=== PATIENT | female | born 1965 | race Hispanic/Latino ===

== ENCOUNTER 2018-12-07 09:09 | Inpatient (IN) | payer BC ==
[~2018-12-07] VITALS: Ht 157.5 cm; Wt 74.4 kg
--- OUTSIDE RECORDS SUMMARY | 2018-12-07 09:14 | XMS REPORT ---
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 Allergies, Adverse Reactions, Alerts Allergy Name Allergy Type Status Severity Reaction(s) Onset Date Inactive Date Treating Clinician Comments No Known Allergies DA Active U 2010-11-03 00:00:00 Medications This patient has no known medications. Results Test Description Test Time Test Comments Text Results Atomic Results Result Comments - CT ABD PELVIS W/CONT 2018-11-30 22:15:00 Name: VERONA STRONG [facility] FSED : 1965 Age/S: 53 / F [address] [facility] [address] Unit #: [id number] Loc: [address] Phys: Cristo Avalos MD [place], [place] [address] Acct: [id number] Dis Date: Status: REG ER PHONE #: Exam Date: 11/30/2018 2143 FAX #: Reason: LLQ pain. diverticultis?? also has h/o kidney s EXAMS: CPT CODE: [id number] CT ABD PELVIS W/CONT 13425 REASON FOR EXAM: LLQ pain. diverticultis?? also has h/o kidney stones EXAM ORDER DATE: 11/30/2018 8:09 PM Ordering M.DVaishali: Cristo Avalos MD PROCEDURE: - CT ABD PELVIS W/CONT contrast-enhanced axial CT images were acquired through the abdomen/pelvis at 5 mm intervals. Sagittal and coronal reformatted images were generated. Automated exposure control was utilized for this reduction. Phases of contrast: venous and delayed CO MPARISON: CT scan of the abdomen and pelvis November 03, 2010 FINDINGS: Visualized thorax: Calcified granuloma in the left lung base. Otherwise normal. Hepatobiliary system: Decreased hepatic parenchymal attenuation is compatible with steatosis. Pancreas: Normal Spleen: Normal Adrenal glands: Normal Genitourinary system: There is a 4 mm stone in the proximal left ureter (series 2 image 59). There is dilation of the left renal pelvis, similar to the previous CT scan. On the delayed images no contrast is observed in the ureter distal to this stone. There is mild stranding of the perinephric fat on the left side and slightly decreased enhancement of the left kidney compared to the right. There are also calcified stones in the inferior pole calyces with the larger stone measuring up to 7 mm and the smaller stone measuring 4 mm. No stones in the right kidney or right ureter. Urinary bladder and reproductive organs are within normal limits. Gastrointestinal tract and appendix: Normal Abdominal vascular structures: Normal Peritoneum and retroperitoneum: No free fluid or free air. No omental PAGE 1 Signed Report (CONTINUED) Name: VERONA STRONG [facility] FSED : 1965 Age/S: 53 / F [address] [facility] [address] Unit #: [id number] Loc: [address] Phys: Cristo Avalos MD [place], [place] [address] Acct: [id number] Dis Date: Status: REG ER PHONE #: Exam Date: 11/30/2018 2141 FAX #: Reason: LLQ pain. diverticultis?? also has h/o kidney s EXAMS: CPT CODE: [id number] CT ABD PELVIS W/CONT 86261 <Continued> or mesenteric masses. There is mild stranding of the perinephric fat on the left side.. Musculoskeletal structures and abdominal wall: Fat-containing umbilical hernia. Hemangioma in the L3 vertebral body. IMPRESSION: Stone in the proximal left ureter with findings suggesting ureteral obstruction and inflammatory changes of the left kidney. Additional calyceal stones are also present in the left kidney. at 2215 Reported and signed by: Edmund Smith MD CC: Cristo Avalos MD; Una Payton Technologist:Andrea Barrera CTDI: DLP: Trnscb Date/Time: 11/30/2018 (2215) [id number] Orig Print D/T: S: 11/30/2018 (5587) PAGE 2 Signed Report URINALYSIS COMPLETE 2018-11-30 20:33:00 UA COLOR (test code=COLU) YELLOW YELLOW UA APPEARANCE (test code=APPU) HAZY CLEAR UA GLUCOSE DIPSTICK (test code=DGLUU) 300-500 (3+) mg/dL NEGATIVE UA BILIRUBIN DIPSTICK (test code=BILU) NEGATIVE NEGATIVE UA KETONE DIPSTICK (test code=KETU) 1+ mg/dL NEGATIVE UA SPECIFIC GRAVITY (test code=SGU) 1.025 1.001-1.035 UA BLOOD DIPSTICK (test code=SIERRA) 2+ (Moderate) NEGATIVE UA PH DIPSTICK (test code=NURIS) 6.0 5.0-8.0 UA PROTEIN DIPSTICK (test code=PROU) 1+ mg/dL Neg-15 UA UROBILINIOGEN DIPSTICK (test code=URO) 0.2 mg/dL 0.0-0.2 UA NITRITE DIPSTICK (test code=VICTOR MANUEL) NEGATIVE NEGATIVE UA LEUKOCYTE ESTERASE DIPSTICK (test code=LEUU) TRACE uL NEGATIVE UA MICROSCOPIC NEEDED? (test code=UAMICRO) YES UA WBC (test code=WBCU) >100 per HPF 0-5 UA RBC (test code=RBCU) 5-10 per HPF 0-5 UA EPITHELIAL CELLS (test code=EPIU) Few (2-5/hpf) per HPF Few UA BACTERIA (test code=BACU) FEW per HPF NONE UA MUCUS (test code=MUCU) FEW per LPF NONE-FEW Urine Source? Clean CatchURINALYSIS [id number] 20:27:00* Test Item Value Reference Range Comments UA COLOR (test code=COLU) YELLOW UA APPEARANCE (test code=APPU) CLEAR UA GLUCOSE DIPSTICK (test code=DGLUU) 300-500 (3+) mg/dL NEGATIVE UA BILIRUBIN DIPSTICK (test code=BILU) NEGATIVE NEGATIVE UA KETONE DIPSTICK (test code=KETU) 1+ mg/dL NEGATIVE UA SPECIFIC GRAVITY (test code=SGU) 1.025 1.001-1.035 UA BLOOD DIPSTICK (test code=SIERRA) 2+ (Moderate) NEGATIVE UA PH DIPSTICK (test code=NURIS) 6.0 5.0-8.0 UA PROTEIN DIPSTICK (test code=PROU) 1+ mg/dL Neg-15 UA UROBILINIOGEN DIPSTICK (test code=URO) 0.2 mg/dL 0.0-0.2 UA NITRITE DIPSTICK (test code=VICTOR MANUEL) NEGATIVE NEGATIVE UA LEUKOCYTE ESTERASE DIPSTICK (test code=LEUU) TRACE uL NEGATIVE UA MICROSCOPIC NEEDED? (test code=UAMICRO) UA WBC (test code=WBCU) per HPF 0-5 UA RBC (test code=RBCU) per HPF 0-5 UA EPITHELIAL CELLS (test code=EPIU) per HPF Few UA BACTERIA (test code=BACU) per HPF NONE Urine Source? Clean CatchBASIC METABOLIC [id number] 20:07:00* Test Item Value Reference Range Comments SODIUM (test code=NA) 139 mmol/L 128-145 POTASSIUM (test code=K) 4.1 mmol/L 3.5-5.1 CHLORIDE (test code=CL) 104.0 mmol/L 98-107 CARBON DIOXIDE (test code=CO2) 28.5 mmol/L 22-29 ANION GAP (test code=GAP) 11 mmol/L 10-20 GLUCOSE (test code=GLU) 136 mg/dL 70-110 BLOOD UREA NITROGEN (test code=BUN) 13 mg/dL 7-22 GLOMERULAR FILTRATION RATE (test code=GFR) > 60 mL/min >=60 Estimated GFR by using Modified MDRD formula.Chronic kidney disease is defined as either kidney damageor GFR <60 mL/min/1.73 m2 for >3 months. CREATININE (test code=CREAT) 0.78 mg/dL 0.55-1.3 BUN/CREATININE RATIO (test code=BUN/CREA) 16.7 10-20 CALCIUM (test code=CA) 10.0 mg/dL 8.0-10.5 HEPATIC FUNCTION [id number] 20:07:00* Test Item Value Reference Range Comments TOTAL PROTEIN (test code=PROT) gram/dL 6.4-8.2 ALBUMIN (test code=ALB) g/dL 3.4-5.0 GLOBULIN (test code=GLOB) G/DL 1-10 ALBUMIN/GLOBULIN RATIO (test code=A/G) 0.75-1.50 BILIRUBIN TOTAL (test code=BILT) mg/dL 0.0-1.0 BILIRUBIN DIRECT (test code=BILD) mg/dL 0.0-0.20 SGOT/AST (test code=AST) IUnit/L 15-37 SGPT/ALT (test code=ALT) IUnit/L 12-78 ALKALINE PHOSPHATASE TOTAL (test code=ALKP) IUnit/L 45-117 [id number] 20:07:00* Test Item Value Reference Range Comments LIPASE (test code=LIP) U/L 73.0-393.0 HCG SERUM [id number] 20:07:00* Test Item Value Reference Range Comments HCG SERUM QUAL (test code=HCGQL) NEGATIVE NEGATIVE This HCGQL test is NOT applicable for MALE patients.Check with nurse about probable order error.If Tumor Marker Test needed, nurse should order test "HCGTU"(Test #550.45365) BASIC METABOLIC [id number] 20:07:00* Test Item Value Reference Range Comments SODIUM (test code=NA) 139 mmol/L 128-145 POTASSIUM (test code=K) 4.1 mmol/L 3.5-5.1 CHLORIDE (test code=CL) 104.0 mmol/L 98-107 CARBON DIOXIDE (test code=CO2) 28.5 mmol/L 22-29 ANION GAP (test code=GAP) 11 mmol/L 10-20 GLUCOSE (test code=GLU) 136 mg/dL 70-110 BLOOD UREA NITROGEN (test code=BUN) 13 mg/dL 7-22 GLOMERULAR FILTRATION RATE (test code=GFR) > 60 mL/min >=60 Estimated GFR by using Modified MDRD formula.Chronic kidney disease is defined as either kidney damageor GFR <60 mL/min/1.73 m2 for >3 months. CREATININE (test code=CREAT) 0.78 mg/dL 0.55-1.3 BUN/CREATININE RATIO (test code=BUN/CREA) 16.7 10-20 CALCIUM (test code=CA) 10.0 mg/dL 8.0-10.5 HEPATIC FUNCTION [id number] 20:07:00* Test Item Value Reference Range Comments TOTAL PROTEIN (test code=PROT) 8.1 gram/dL 6.1-7.8 ALBUMIN (test code=ALB) 3.8 g/dL 3.3-4.4 GLOBULIN (test code=GLOB) 4.3 G/DL 1-10 ALBUMIN/GLOBULIN RATIO (test code=A/G) 0.9 0.75-1.50 BILIRUBIN TOTAL (test code=BILT) 0.60 mg/dL 0.2-1.2 BILIRUBIN DIRECT (test code=BILD) 0.10 mg/dL 0.0-0.30 SGOT/AST (test code=AST) 24 U/L 10-39 SGPT/ALT (test code=ALT) 40 U/L 10-69 ALKALINE PHOSPHATASE TOTAL (test code=ALKP) 122 U/L 50-139 [id number] 20:07:00* Test Item Value Reference Range Comments LIPASE (test code=LIP) 247 Unit/L 144-286 HCG SERUM [id number] 20:07:00* Test Item Value Reference Range Comments HCG SERUM QUAL (test code=HCGQL) NEGATIVE NEGATIVE This HCGQL test is NOT applicable for MALE patients.Check with nurse about probable order error.If Tumor Marker Test needed, nurse should order test "HCGTU"(Test #550.07461) BASIC METABOLIC [id number] 20:01:00* Test Item Value Reference Range Comments SODIUM (test code=NA) 139 mmol/L 128-145 POTASSIUM (test code=K) 4.1 mmol/L 3.5-5.1 CHLORIDE (test code=CL) 104.0 mmol/L 98-107 CARBON DIOXIDE (test code=CO2) 28.5 mmol/L 22-29 ANION GAP (test code=GAP) 11 mmol/L 10-20 GLUCOSE (test code=GLU) 136 mg/dL 70-110 BLOOD UREA NITROGEN (test code=BUN) 13 mg/dL 7-22 GLOMERULAR FILTRATION RATE (test code=GFR) > 60 mL/min >=60 Estimated GFR by using Modified MDRD formula.Chronic kidney disease is defined as either kidney damageor GFR <60 mL/min/1.73 m2 for >3 months. CREATININE (test code=CREAT) 0.78 mg/dL 0.55-1.3 BUN/CREATININE RATIO (test code=BUN/CREA) 16.7 10-20 CALCIUM (test code=CA) 10.0 mg/dL 8.0-10.5 HEPATIC FUNCTION [id number] 20:01:00* Test Item Value Reference Range Comments TOTAL PROTEIN (test code=PROT) gram/dL 6.4-8.2 ALBUMIN (test code=ALB) g/dL 3.4-5.0 GLOBULIN (test code=GLOB) G/DL 1-10 ALBUMIN/GLOBULIN RATIO (test code=A/G) 0.75-1.50 BILIRUBIN TOTAL (test code=BILT) mg/dL 0.0-1.0 BILIRUBIN DIRECT (test code=BILD) mg/dL 0.0-0.20 SGOT/AST (test code=AST) IUnit/L 15-37 SGPT/ALT (test code=ALT) IUnit/L 12-78 ALKALINE PHOSPHATASE TOTAL (test code=ALKP) IUnit/L 45-117 [id number] 20:01:00* Test Item Value Reference Range Comments LIPASE (test code=LIP) U/L 73.0-393.0 HCG SERUM [id number] 20:01:00* Test Item Value Reference Range Comments HCG SERUM QUAL (test code=HCGQL) NEGATIVE CBC W/O [id number] 19:53:00* Test Item Value Reference Range Comments WHITE BLOOD CELL (test code=WBC) 11.8 K/mm3 4.5-12.5 RED BLOOD CELL (test code=RBC) 5.05 mill/mm3 3.7-5.2 HEMOGLOBIN (test code=HGB) 15.5 gram/dL 11.5-15.5 HEMATOCRIT (test code=HCT) 46.8 % 36.0-46.0 MEAN CELL VOLUME (test code=MCV) 92.7 fL 80-98 MEAN CELL HGB (test code=MCH) 30.7 picogram 27.0-33.0 MEAN CELL HGB CONCETRATION (test code=MCHC) 33.1 gram/dL 33.0-36.0 RED CELL DISTRIBUTION WIDTH (test code=RDW) 12.1 % 11.6-16.2 RED CELL DISTRIBUTION WIDTH SD (test code=RDW-SD) 41.7 fL 37.0-51.0 PLATELET COUNT (test code=PLT) 183 K/mm3 150-450 MEAN PLATELET VOLUME (test code=MPV) 10.9 fL 6.7-11.0
--- OUTSIDE RECORDS SUMMARY | 2018-12-07 09:14 | XMS REPORT | Clinical Summary ---
Author Author [facility] Address Unknown Phone Unavailable Care Team Providers Care Key Account Coordinator Name Role Phone Zi Matt MD PCP Allergies No Known Allergies Medications End Date Status Medication Sig Dispensed Refills Start Date Active pravastatin (PRAVACHOL) Take 20 mg by 0 20 MG tablet mouth nightly. Active dapagliflozin-metformin Take 1 tablet 0 (XIGDUO XR) 10-1,000 mg by mouth tablet, IR & ER, biphasic daily. 24hr Active ciprofloxacin (CIPRO) 500 Take 500 mg 0 MG tablet by mouth 2 (two) times a day. Active Problems Problem Noted Date Calculus of kidney 12/02/2018 Encounters Care Team Description Date Type Specialty Wei Chaves MD LEFT ESWL [facility]/02[facility]2018 [facility] General Surgery Event Wei Chaves MD 12/02/2018 Hospital General Surgery Encounter after 12/06/2017 Social History Date Tobacco Use Types Packs/Day Years Used Never Smoker Smokeless Tobacco: Never Used Alcohol Use Drinks/Week oz/Week Comments Never Alcohol Habits Answer Date Recorded How often do you have a drink containing alcohol? Never 12/02/2018 How many drinks containing alcohol do you have on Not asked a typical day when you are drinking? How often do you have six or more drinks on one Not asked occasion? Sex Assigned at Date Recorded Not on file Industry Job Start Date Occupation Not on file Not on file Not on file Travel End Travel History Travel Start No recent travel history available. Last Filed Vital Signs Time Taken Vital Sign Reading 12/02/2018 5:28 PM CDT Blood Pressure 120/76 12/02/2018 5:28 PM CDT Pulse 52 12/02/2018 5:06 PM CDT Temperature 36.3 C (97.3 F) 12/02/2018 5:28 PM CDT Respiratory Rate 16 12/02/2018 5:28 PM CDT Oxygen Saturation 99% - Inhaled Oxygen - Concentration 12/02/2018 2:44 PM CDT Weight 74.4 kg (164 lb) 12/02/2018 2:44 PM CDT Height 157.5 cm (5' 2") 12/02/2018 2:44 PM CDT Body Mass Index 30 Plan of Treatment Health Maintenance Due Date Last Done Comments BREAST CANCER SCREENING 2014 COLONOSCOPY SCREENING 2014 SHINGLES VACCINES (#1) 2014 INFLUENZA VACCINE 12/17/2018 Procedures Comments Procedure Name Priority Date/Time Associated Diagnosis POC GLUCOSE Routine 12/02/2018 4:56 PM CDT EXTRACORPOREAL SHOCKWAVE 12/02/2018 N20.0 KIDNEY STONE LITHOTRIPSY (ESWL) 4:20 PM CDT Special Needs NEXTMED OR AN ELECTIVE Routine 12/02/2018 SUPR[address]LOTTIC AIRWAY 3:44 PM CDT Procedure Note - Denver Duvall - 12/02/2018 3:44 PM CDT Airway Date/Time: 12/02/2018 3:39 PM Performed by: Denver Duvall Authorized by: Clemente Monroe MD Location: OR Urgency: Elective Difficult Airway: No Anesthesio logist: Clemente Monroe MD Resident/C RNA/AA: Denver Duvall Performed by: resident/C RNA/AA Preoxygena tyler with 100% O2: Yes Mask Ventilatio n: Not attempted Final Airway Type: Supraglott ic airway Final LMA: Unique LMA Size: 4 Number of Attempts at Approach: 1 ECG PRE/POST OP Routine 12/02/2018 2:51 PM CDT XR ABDOMEN 1 VW Routine 12/02/2018 2:32 PM CDT HCG QUALITATIVE, URINE STAT 12/02/2018 SCREEN 2:19 PM CDT ESTIMATED GFR Routine 12/02/2018 2:13 PM CDT BASIC METABOLIC PANEL Routine 12/02/2018 2:13 PM CDT after 12/06/2017 Results * POC glucose (12/02/2018 4:56 PM CDT) POC glucose 87 65 - 99 mg/dL [place] Comment: EPISCOPALIAN ALY Meter ID: [id number] [facility] Journeyman Electrician: Frederic Barraza Specimen Performing Organization Address City/State/Zipcode [place] [address] [place] [address] PATHOLOGY AND GENOMIC MEDICINE [place] [address] [place] [address] [facility] * ECG Pre/Post Op (12/02/2018 2:51 PM CDT) Ventricular 61 [facility] rate Atrial rate 61 [facility] OR interval 148 [facility] QRSD interval 86 [facility] QT interval 380 [facility] QTC interval 382 [facility] P axis 1 40 [facility] QRS axis 1 1 [facility] T wave axis 21 [facility] EKG impression Normal sinus rhythm with sinus [facility] M[facility] arrhythmia-Normal ECG-No previous ECGs available- Specimen Narrative Performed At Performing Organization Address [facility] Phone Number [facility] [address] [place] [address] * XR Abdomen 1 Vw (12/02/2018 2:32 PM CDT) Specimen Narrative Performed At EXAMINATION:XR ABDOMEN 1 VW [facility] CLINICAL HISTORY:pre op COMPARISON:None. IMPRESSION: 1.8 x 0.4 cm stone projects over the lower pole left kidney. Smaller 1 mm stone in the left kidney Large amount retained stool in colon Bony structures within normal limits [id number] Procedure Note Hm Interface, Radiology Results Incoming - 12/02/2018 3:18 PM CDT EXAMINATION: XR ABDOMEN 1 VW CLINICAL HISTORY: pre op COMPARISON: None. IMPRESSION: 1.8 x 0.4 cm stone projects over the lower pole left kidney. Smaller 1 mm stone in the left kidney Large amount retained stool in colon Bony structures within normal limits [id number] Performing Organization Address City/[facility]/Zipcode Phone Number [facility] [address] [place] [address] * hCG qualitative, urine screen (12/02/2018 2:19 PM CDT) [facility] hCG Negative Negative [place] qualitative, Comment: [facility] urine The manufacturers stated [facility] sensitivity of HcG test for serum is >/=10 mIU/ml and urine is >/=20mIU/ml. Specimen Urine Performing Organization Address [facility] Cent[facility]ode Phone Number [facility] [place] [id number] [place] [address] [place] [address] PATHOLOGY AND [facility] MEDICINE [address] * Estimated GFR (12/02/2018 2:13 PM CDT) [facility] Estimated GFR >=90 mL/min/1.73 m2 [place] Comment: [facility] rpretation G1 >=90 Normal or high G2 60-89Mildly decreased [id number] Mildly to moderately decreased C3i62-63 Moderately to severely decreased G4 15-29Severely decreased G5 <15Kidney failure The eGFR was calculated using the Chronic Kidney Disease Epidemiology Collaboration (CKD-EPI) equation. Interpretation is based on recommendations of the National Kidney Foundation-Kidney Disease Outcomes Quality Initiative (NKF-KDOQI) published in 2014. Specimen Plasma specimen Performing Organization Address [facility] Centercode Phone Number [address] [place] [address] PATHOLOGY AND [facility] MEDICINE [address] * Basic metabolic panel (12/02/2018 2:13 PM CDT) [facility] Sodium 140 135 - 148 mEq/L [facility] Potassium 3.8 3.5 - 5.0 mEq/L [facility] Chloride 106 98 - 112 mEq/L [facility] CO2 25 24 - 31 mEq/L [facility] Anion gap 9@ANIO 7 - 15 mEq/L [facility] BUN 16 6 - 20 mg/dL [facility] Creatinine 0.70 0.50 - 0.90 mg/dL [facility] Glucose 101 (H) 65 - 99 mg/dL [facility] Calcium 10.3 (H) 8.3 - 10.2 mg/dL [facility] Specimen Plasma specimen Performing Organization Address City/State/Zipcode [place] [address] [place] [address] PATHOLOGY AND GENOMIC MEDICINE [facility] [place] [place] [address] [facility] after 12/06/2017 Insurance Type Payer Benefit Subscriber ID Effective Phone Address Plan / Dates Group PPO BCBS ANTHEM xxxxxxxxxxxx [id number] BLUE CROSS resent Advance Directives Patient has advance care planning documents on file. For more information, wilner mendoza contact: Griffin Yarbrough [address] [place] [address]
[2018-12-07] MEDS ORDERED: SODIUM CHLORIDE 0.9% 1000ML 1,000 ML IV STA (10:11)
--- NOTE | 2018-12-07 10:51 | Diagnostic Imaging Report ---
EXAMINATION: CHEST SINGLE (PORTABLE) INDICATION: Chest pain COMPARISON: None FINDINGS: TUBES and LINES: None. LUNGS: Mild biapical pleural parenchymal thickening/scarring. No focal consolidation or pulmonary edema. PLEURA: No pleural effusion or pneumothorax. HEART AND MEDIASTINUM: The cardiomediastinal silhouette is normal in size and contour. BONES AND SOFT TISSUES: No acute fracture or dislocation. UPPER ABDOMEN: No free air under the diaphragm. IMPRESSION: No focal pneumonia or pulmonary edema. Signed by: Ellie Mccann MD on 12/07/2018 10:47 AM
[2018-12-07 11:17] LABS: BASOPHILS # (AUTO) 0.1 (0.0-0.1); BASOPHILS % 0.4 % (0.0-1.0); EOSINOPHILS # (AUTO) 0.3 (0.0-0.4); EOSINOPHILS % 2.3 % (0.0-6.0); HEMATOCRIT 42.6 % (34.2-44.1); HEMOGLOBIN 14.6 g/dL (12.0-16.0); LYMPHOCYTES # (AUTO) 1.8 (1.0-3.2); LYMPHOCYTES % 15.1 % (18.0-39.1); MEAN CORPUSCULAR HEMOGLOBIN 30.4 pg (28-32); MEAN CORPUSCULAR HGB CONC 34.3 g/dL (31-35); MEAN CORPUSCULAR VOLUME 88.6 fL (81-99); MONOCYTES # (AUTO) 1.3 (0.2-0.8); MONOCYTES % 11.1 % (4.4-11.3); NEUTROPHILS # (AUTO) 8.5 (2.1-6.9); NEUTROPHILS % 70.5 % (38.7-80.0); PLATELET COUNT 267 x10e3/uL (140-360); RED BLOOD COUNT 4.81 x10e6/uL (3.6-5.1); RED CELL DISTRIBUTION WIDTH 11.7 % (11.7-14.4)
[2018-12-07 11:29] LABS: BILIRUBIN,URINE NEGATIVE (NEGATIVE); CLARITY,URINE CLEAR (CLEAR); COLOR,URINE YELLOW (YELLOW); INR 1.02; KETONES,URINE 1+ (NEGATIVE); LEUKOCYTE ESTERASE ,URINE NEGATIVE (NEGATIVE); NITRITE,URINE NEGATIVE (NEGATIVE); PROTEIN,URINE DIPSTICK NEGATIVE (NEGATIVE); PROTHROMBIN TIME 13.9 seconds (11.9-14.5); URINE UROBILINOGEN 0.2 mg/dL (0.2 - 1)
[2018-12-07 11:30] LABS: PARTIAL THROMBOPLASTIN TIME 31.4 seconds (23.8-35.5)
[2018-12-07 11:33] LABS: ALANINE AMINOTRANSFERASE 26 IU/L (0-55); ALBUMIN 3.4 g/dL (3.5-5.0); ALBUMIN/GLOBULIN RATIO 0.8 (0.8-2.0); ALKALINE PHOSPHATASE 123 IU/L (40-150); AMYLASE 51 U/L (25-125); BLOOD UREA NITROGEN 15 mg/dL (7-26); BUN/CREATININE RATIO 13 (6-25); CALCIUM 10.5 mg/dL (8.4-10.2); CARBON DIOXIDE 25 mmol/L (22-29); CHLORIDE 102 mmol/L (98-107); CREATINE KINASE 26 IU/L (29-168); CREATININE, SERUM 1.15 mg/dL (0.57-1.11); EST GLOMERULAR FILTRATION RATE 49 ML/MIN (60-); GLUCOSE 110 mg/dL (74-118); LIPASE 41 U/L (8-78); SODIUM 136 mmol/L (136-145)
[2018-12-07 11:53] LABS: EPITHELIAL CELLS,URINE RARE /LPF; RBC,URINE 0-5 /HPF (0-5); WBC,URINE (MAN) 0-5 /HPF (0-5)
[2018-12-07 11:54] LABS: BACTERIA,URINE FEW /HPF
--- NOTE | 2018-12-07 14:26 | Diagnostic Imaging Report ---
EXAM: CT Abdomen and Pelvis WITH intravenous contrast INDICATION: Abdominal pain status post lithotripsy. COMPARISON: None. TECHNIQUE: Abdomen and pelvis were scanned utilizing a multidetector helical scanner from the lung base to the pubic symphysis after administration of IV contrast. Coronal and sagittal reformations were obtained. Routine protocol was performed. Scan was performed when during portal venous phase. IV CONTRAST: 100mL of Isovue 370 ORAL CONTRAST: Water. COMPLICATIONS: None RADIATION DOSE: Total DLP: 734.8 mGy*cm Dose modulation, iterative reconstruction, and/or weight based adjustment of the mA/kV was utilized to reduce the radiation dose to as low as reasonably achievable. FINDINGS: LOWER THORAX: Mild bibasilar dependent subsegmental atelectasis. No focal consolidation. HEPATOBILIARY: No focal hepatic lesions. No biliary ductal dilatation. The gallbladder appears unremarkable. SPLEEN: No splenomegaly. PANCREAS: No focal masses or ductal dilatation. ADRENALS: No adrenal nodules. KIDNEYS/URETERS: There is moderate left hydroureteronephrosis with a 6 mm proximal left ureteral obstructing calculus and a second 4 mm left ureteral calculus slightly further distally. There is irregular enhancement of the left renal parenchyma and a small amount of posterior perinephric fluid and adjacent perinephric fat stranding, all suggestive of pyelonephritis. A 10 mm rounded calculus and adjacent 8 mm elongated calculus are at the left kidney lower pole. No right renal calculi or right hydronephrosis. PELVIC ORGANS/BLADDER: Unremarkable. PERITONEUM / RETROPERITONEUM: No free air or fluid. LYMPH NODES: No lymphadenopathy. VESSELS: Mild scattered atherosclerotic calcifications of the abdominal aorta. GI TRACT: No distention or wall thickening. Normal appendix. BONES AND SOFT TISSUES: No acute osseous injury. There is a hemangioma of the L3 vertebral body. No suspicious lytic or blastic lesions. IMPRESSION: Proximal left ureteral calculi with resulting moderate left hydroureteronephrosis and findings of left pyelonephritis. Additional left lower pole renal calculi as above. No right hydronephrosis or right renal calculi. Signed by: Ellie Mccann MD on 12/07/2018 2:23 PM
[2018-12-07] MEDS ORDERED: IOPAMIDOL 370 MG/ML 200 ML INFUS..BTL INJ ONE (14:39)
[2018-12-07] MEDS ORDERED: SODIUM CHLORIDE 0.9% 50ML 50 ML ONE (14:39)
[2018-12-07] MEDS: CEFEPIME 1GM/NS 0.9% 50 ML 50 ML IV SCH (15:51)
[2018-12-07] MEDS ORDERED: ONDANSETRON HCL INJ 2MG/ML 2ML 2 MG/ML VIAL IV PRN (18:15)
--- OUTSIDE RECORDS SUMMARY | 2018-12-07 18:25 | XMS REPORT | Clinical Summary ---
Author Author [employer] Organization [employer] Address Unknown Phone Unavailable Care Team Providers Care Activities Assistant Name Role Phone Zi Matt MD PCP [...] MD LEFT ESWL 12/02/2018 [facility]2018 Anesthesia General Surgery Event Wei [...] (ESWL) 4:20 PM CDT Special Needs NEXTMED SD AN ELECTIVE Routine 12/02/2018 SUPRAGLOTTIC AIRWAY 3:44 [...] POC glucose 87 65 - 99 mg/dL GLADE Comment: LUTHERAN ALY Meter ID: [id number] [facility] Transit Planning Director: Frederic Barraza Specimen Performing Organization Address City/State/Zipcode [place] [address] [place] [address] PATHOLOGY [place] [address] [place] [address] [facility] * ECG Pre/Post Op (12/02/2018 2:51 PM CDT) Ventricular 61 [facility] MUSE rate Atrial rate 61 [facility] MUSE SD interval 148 [facility] QRSD interval 86 [facility] M[facility] QT interval 380 [facility] QTC interval 382 [facility] M[facility] P axis 1 40 [facility] M[facility] QRS axis 1 1 [facility] MUSE T wave axis 21 [facility] MUSE EKG impression Normal sinus rhythm with sinus [facility] MUSE arrhythmia-Normal ECG-No previous ECGs available- Specimen Narrative Performed At Performing Organization Address [facility] Phone Number [facility] MUSE [address] [place] [address] * XR Abdomen 1 Vw (12/02/2018 2:32 PM CDT) Specimen Narrative Performed At EXAMINATION:XR ABDOMEN 1 VW [facility] CLINICAL HISTORY:pre op COMPARISON:None. IMPRESSION: 1.8 x 0.4 cm stone projects over the lower pole left kidney. Smaller 1 mm stone in the left kidney Large amount retained stool in colon Bony structures within normal limits [id number] Procedure Note Hm Interface, Radiology Results Incoming - 12/02/2018 3:18 PM CDT EXAMINATION: XR ABDOMEN 1 VW CLINICAL HISTORY: pre op COMPARISON: None. IMPRESSION: 1.8 x 0.4 cm stone projects over the lower pole left kidney. Smaller 1 mm stone in the left kidney Large amount retained stool in colon Bony structures within normal limits [id number] Performing Organization Address City/[facility]/Zipcode Phone Number [facility] [address] [place] [address] * hCG qualitative, urine screen (12/02/2018 2:19 PM CDT) [facility] hCG Negative Negative GLADE qualitative, Comment: [facility] urine The manufacturers stated [facility] sensitivity of HcG test for serum is >/=10 mIU/ml and urine is >/=20mIU/ml. Specimen Urine Performing Organization Address [facility] Centercode Phone Number [facility] [place] [id number] [place] [address] [place] [address] PATHOLOGY AND [facility] MEDICINE [address] * Estimated GFR (12/02/2018 2:13 PM CDT) [facility] Estimated GFR >=90 mL/min/1.73 m2 GLADE Comment: [facility] rpretation G1 >=90 Normal or high G2 60-89Mildly decreased [id number] Mildly to moderately decreased D7o10-41 Moderately to severely decreased G4 15-29Severely decreased G5 <15Kidney failure The eGFR was calculated using the Chronic Kidney Disease Epidemiology Collaboration (CKD-EPI) equation. Interpretation is based on recommendations of the National Kidney Foundation-Kidney Disease Outcomes Quality Initiative (NKF-KDOQI) published in 2014. Specimen Plasma specimen Performing Organization Address [facility] Centercode Phone Number [address] [place] [address] PATHOLOGY AND [facility] MEDICINE [address] * Basic metabolic panel (12/02/2018 2:13 PM CDT) [facility] Sodium 140 135 - 148 mEq/L [facility] Potassium 3.8 3.5 - 5.0 mEq/L [facility] Chloride 106 98 - 112 mEq/L [facility] CO2 25 24 - 31 mEq/L [facility] Anion gap 9@ANIO 7 - 15 mEq/L [facility] BUN 16 6 - 20 mg/dL [facility] Creatinine 0.70 0.50 - 0.90 mg/dL [facility] Glucose 101 (H) 65 - 99 mg/dL [facility] Calcium 10.3 (H) 8.3 - 10.2 mg/dL [facility] Specimen Plasma specimen Performing Organization Address City/State/Zipcode [place] Number [place] [address] [place] [address] PATHOLOGY AND GENOMIC MEDICINE GRIFFIN YARBROUGH [address] [place] [address] [facility] after 12/06/2017 Insurance Type Payer Benefit Subscriber ID Effective Phone Address Plan / Dates Group PPO BCBS ANTHEM xxxxxxxxxxxx 2015-P BLUE CROSS resent Advance Directives Patient has advance care planning documents on file. For more information, wilner mendoza contact: Griffin Yarbrough [address] [place] [address]
[2018-12-07] MEDS: SODIUM CHLORIDE 0.9% 1000ML 1,000 ML IV SCH (18:45)
--- NOTE | 2018-12-07 18:56 | NUR ---
pt report given to MORAIMA Mojica
[2018-12-07] MEDS ORDERED: PRAVASTATIN SOD20 MG PO (20:37)
[2018-12-07] MEDS ORDERED: XIGDUO PO (20:37)
[2018-12-07] MEDS ORDERED: DEXTROSE 50% SYRINGE 50 ML IV PRN (21:15)
[2018-12-07] MEDS ORDERED: ACETAMINOPHEN 1000 MG/100 ML IV PRN (21:15)
--- NOTE | 2018-12-07 21:29 | NUR ---
received patient to unit via stretcher aaox4, c/o headache- treated with prn medication. resp even and unlabored. amb, steady gait. skin intact. l ac 18g, NS @ 125. updated patient on plan of care, and npo status.
[2018-12-07 21:39] VITALS: BP 124/73
[2018-12-08] VITALS (7 sets, daily range): BP systolic 107–134; BP diastolic 55–78
[2018-12-08] MEDS: SODIUM CHLORIDE 0.9% 1000ML 1,000 ML IV SCH ×4 (03:16→20:59)
[2018-12-08] MEDS: CEFEPIME 1GM/NS 0.9% 50 ML 50 ML IV SCH ×2 (03:48→14:57)
[2018-12-08 06:42] LABS: BASOPHILS % 0.3 % (0.0-1.0); EOSINOPHILS # (AUTO) 0.4 (0.0-0.4); EOSINOPHILS % 3.4 % (0.0-6.0); HEMATOCRIT 40.8 % (34.2-44.1); HEMOGLOBIN 13.8 g/dL (12.0-16.0); LYMPHOCYTES % 16.7 % (18.0-39.1); MEAN CORPUSCULAR HEMOGLOBIN 30.4 pg (28-32); MEAN CORPUSCULAR HGB CONC 33.8 g/dL (31-35); MEAN CORPUSCULAR VOLUME 89.9 fL (81-99); MONOCYTES # (AUTO) 1.4 (0.2-0.8); MONOCYTES % 11.7 % (4.4-11.3); PLATELET COUNT 258 x10e3/uL (140-360); RED BLOOD COUNT 4.54 x10e6/uL (3.6-5.1); RED CELL DISTRIBUTION WIDTH 11.7 % (11.7-14.4)
[2018-12-08 07:01] LABS: ALBUMIN/GLOBULIN RATIO 0.7 (0.8-2.0); ANION GAP 13.1 mmol/L (8-16); CALCIUM 9.7 mg/dL (8.4-10.2); CREATININE, SERUM 0.97 mg/dL (0.57-1.11); POTASSIUM 4.1 mmol/L (3.5-5.1)
--- NOTE | 2018-12-08 07:11 | NUR ---
report given to oncoming nurse, patient aaox3, no needs voiced at this time. bed locked and in lowest position, call light within reach.
--- NOTE | 2018-12-08 07:25 | NUR ---
RECEIVED PATIENT AWAKE RESTING IN BED NO SIGNS OF DISTRESS. BED LOW, WHEELS LOCKED, SIDE RAILS X2. CALL LIGHT IN REACH. WILL CONTINUE TO MONITOR PATIENT.
[2018-12-08] MEDS: INSULIN LISPRO 100 UNIT/1 ML 3ML VIAL SQ SCH ×4 (07:30→20:12)
[2018-12-08] MEDS: MORPHINE SULFATE INJ 4 MG/ML INJ 1ML IV PRN ×2 (09:01→20:08)
--- NOTE | 2018-12-08 09:45 | NUR ---
PATIENT A/O X3, EVEN RESPIRATIONS ON RA. BOWEL SOUNDS ACTIVE, SKIN INTACT, NO EDEMA. PATIENT COMPLAINT OF LEFT FLANK PAIN 12/26. LEFT AC 18 GAUGE IV WITH NS @ 125 CC/HR. IV INTACT AND PATENT. PATIENT AMBULATES INDEPENDENTLY. PATIENT NPO AT THIS TIME FOR POSSIBLE PROCEDURE TODAY. VITAL SIGNS STABLE. EDUCATED PATIENT TO CALL NURSE FOR ASSISTANCE. CALL LIGHT IN REACH, WILL CONTINUE TO MONITOR PATIENT.
--- NOTE | 2018-12-08 14:51 | Diagnostic Imaging Report ---
Exam: KUB - 2 views Clinical History: Renal calculi Comparison: Abdomen and pelvis CT of 12/07/2018 Findings: There is a 10 mm calcific density at the midpole of the left kidney and a 10 mm calcific density at the lower pole of the left kidney. 9 mm density overlying the expected course of the left proximal ureter and 8mm calcific density slightly inferiorly also overlying the expected course of the left ureter. These findings likely correspond to the calculi seen on the CT of 12/07/2018. No right-sided calculi identified. Nonobstructive bowel gas pattern. No free air. The osseous structures appear unremarkable. Impression: Left renal and ureteral calculi as above. Signed by: Ellie Mccann MD on 12/08/2018 2:48 PM
--- NOTE | 2018-12-08 20:53 | NUR ---
SPOKE TO KILLIAN HELMS NP AT THIS. NON CLINICAL ADVISOR SAID OK [facility]
[2018-12-08] MEDS ORDERED: ACETAMINOPHEN 1000 MG/100 ML IV PRN (22:00)
[2018-12-09] VITALS: BP 132/87
[2018-12-09] MEDS: CEFEPIME 1GM/NS 0.9% 50 ML 50 ML IV SCH ×2 (03:09→15:59)
[2018-12-09 04:00] VITALS: BP 115/68
[2018-12-09 05:29] LABS: BASOPHILS # (AUTO) 0.1 (0.0-0.1); BASOPHILS % 0.4 % (0.0-1.0); EOSINOPHILS # (AUTO) 0.4 (0.0-0.4); EOSINOPHILS % 3.2 % (0.0-6.0); HEMATOCRIT 40.1 % (34.2-44.1); HEMOGLOBIN 13.4 g/dL (12.0-16.0); LYMPHOCYTES # (AUTO) 2.5 (1.0-3.2); LYMPHOCYTES % 21.4 % (18.0-39.1); MEAN CORPUSCULAR HEMOGLOBIN 29.7 pg (28-32); MEAN CORPUSCULAR HGB CONC 33.4 g/dL (31-35); MEAN CORPUSCULAR VOLUME 88.9 fL (81-99); MONOCYTES # (AUTO) 1.2 (0.2-0.8); MONOCYTES % 9.8 % (4.4-11.3); NEUTROPHILS # (AUTO) 7.6 (2.1-6.9); NEUTROPHILS % 64.3 % (38.7-80.0); PLATELET COUNT 266 x10e3/uL (140-360); RED BLOOD COUNT 4.51 x10e6/uL (3.6-5.1); RED CELL DISTRIBUTION WIDTH 11.8 % (11.7-14.4)
[2018-12-09 05:48] LABS: ANION GAP 11.3 mmol/L (8-16); CALCIUM 9.7 mg/dL (8.4-10.2); CREATININE, SERUM 0.98 mg/dL (0.57-1.11); POTASSIUM 4.3 mmol/L (3.5-5.1)
--- NOTE | 2018-12-09 06:07 | NUR ---
PT OFF UNIT TO O.R. VITAL SIGNS STABLE.
[2018-12-09] MEDS ORDERED: IOPAMIDOL 610MG/1ML 300 MG/ML VIAL IV ONE (06:25)
[2018-12-09] MEDS: INSULIN LISPRO 100 UNIT/1 ML 3ML VIAL SQ SCH ×3 (07:30→17:12)
--- NOTE | 2018-12-09 07:31 | NUR ---
RECEIVED REPORT FROM HEAD CAGER RN. PATIENT OFF UNIT AT THIS TIME FOR PROCEDURE.
[2018-12-09] MEDS ORDERED: FENTANYL CITRATE/PF 100MCG/2 ML INJ ONE (07:32)
--- NOTE | 2018-12-09 07:39 | NUR ---
RECEIVED REPORT FROM EVENTS MANAGER. WAITING FOR PATIENT TO ARRIVE TO FLOOR.
--- NOTE | 2018-12-09 07:48 | NUR ---
PATIENT ARRIVED TO FLOOR. VITAL SIGNS STABLE, SKIN INTACT, NO EDEMA. ASSISTED PATIENT TO BATHROOM, PATIENT HAS VOIDED SINCE SURGERY. URINE PINK TINGED. ASSISTED PATIENT BACK TO BED. RIGHT FA 20 GAUGE IV WITH NS @ 75 CC/HR. NO PAIN AT THIS TIME. AT BEDSIDE. CALL LIGHT IN REACH, WILL CONTINUE TO MONITOR PATIENT.
[2018-12-09 07:58] VITALS: BP 103/74
[2018-12-09] MEDS ORDERED: CEFDINIR300 MG PO (08:15)
[2018-12-09] MEDS ORDERED: TYLENOL # 31 EA PO (08:15)
[2018-12-09] MEDS ORDERED: FAMOTIDINE 20 MG TAB PO SCH (09:00)
[2018-12-09] MEDS ORDERED: XIGDUO PO SCH (09:00)
[2018-12-09] MEDS: SODIUM CHLORIDE 0.9% 1000ML 1,000 ML IV SCH (09:06)
--- NOTE | 2018-12-09 10:01 | Consultation ---
DATE OF CONSULTATION: 12/08/2018 Urologic Consultation Consultation is called by Dr. Bryant and Dr. Gagnon/Radha in the emergency room. CHIEF COMPLAINT/REASON FOR CONSULTATION: Fevers and hydronephrosis. HISTORY OF PRESENT ILLNESS: Ms. Boyd is a very pleasant 53-year-old female patient, who was diagnosed with a 7 mm left renal calculus in the past, 4 mm ureteral calculus at an outside emergency room, presented last week for shock wave lithotripsy, was found to have massively undersized stone on the CAT scan, but she underwent lithotripsy and now presents with subjective fever at home. Denies hematuria. Does have urinary frequency and urgency and occasional incontinence. PAST MEDICAL HISTORY: See office chart. MEDICATIONS: Please see JUL. ALLERGIES: NKDA. SOCIAL HISTORY: Denied smoking or drinking. FAMILY HISTORY: Denied urologic stones or malignancies. REVIEW OF SYSTEMS: Noncontributory other than problems mentioned above for 12 organ systems. PHYSICAL EXAMINATION: GENERAL: An elderly female, currently in no acute distress. VITAL SIGNS: Temperature 96.4, pulse 51, respirations 18, and blood pressure 116/78. HEENT: Sclerae anicteric. NECK: Supple. BACK: Without costovertebral angle tenderness bilaterally. ABDOMEN: Soft. It is nontender. It is nondistended. There is no palpable mass. No palpable hernias. No palpable adenopathy. : Normal female external genitalia. EXTREMITIES: No edema. NEUROLOGIC: Moves all four extremities. PSYCH: Alert and appropriate. SKIN: Intact. Normal color. PERTINENT LABORATORY DATA: A CT scan revealing left-sided hydronephrosis with a 6 mm left proximal ureteral stone, 4 mm left mid ureteral stone, 10 mm left lower pole kidney stone, 8 mm left upper pole kidney stone. Urinalysis; 0-5 reds, 0-5 whites. Hemoglobin 13, hematocrit 40, platelet count 258,000, and white cell count 11,900. Sodium 136, potassium 4.0, chloride 92, bicarb 25, BUN 15, creatinine 1.16, and glucose 110. IMPRESSION: 1. Left-sided hydronephrosis. 2. Left ureteral calculus (different diagnosis and lithotripsy). 3. Microscopic hematuria (present prior to the lithotripsy). 4. Leukocytosis. 5. Urinary incontinence. PLAN: The patient needs IV antibiotics. The urine is not suggestive of an infection. We will likely need stenting. Thank you for allowing me to participate in the care of your patient. We will be happy to follow along with you. MD DANTE Brown/TRISTIANL /[id number]
[2018-12-09 10:06] VITALS: BP 103/74
[2018-12-09 11:48] VITALS: BP 101/70
--- NOTE | 2018-12-09 13:11 | NUR ---
CECILY SPOKE TO JAZ AN REGARDING PATIENT PLAN OF CARE AND DISCHARGE PLAN. PATIENT TO BE SEEN BY DR. JEFFERS- UROLOGY. PENDING UROLOGY RECOMMENDATION FOR DISCHARGE. CM SPOKE TO PATIENT AT BEDSIDE; PATIENT STATES NO NEEDS AT THIS TIME. PATIENT TO DISCHARGE HOME WITH NO NEEDS AT THIS TIME.
--- NOTE | 2018-12-09 13:37 | Operative Report ---
DATE OF PROCEDURE: 12/09/2018 SURGEON: Wei Chaves MD PREOPERATIVE DIAGNOSES: 1. Microscopic hematuria. 2. Left-sided hydronephrosis. POSTOPERATIVE DIAGNOSES: 1. Microscopic hematuria. 2. Left-sided hydronephrosis. PROCEDURES: 1. Cystourethroscopy with staged right ureteral catheterization and right retrograde pyelogram (separate procedure for diagnosis of hematuria). 2. Staged cystoscopy with insertion of left indwelling stent (entirely separate procedure staged fashion for the diagnosis of hydronephrosis). 3. Interpretation of retrograde pyelography. 4. Supervision of fluoroscopy. ANESTHESIA: General. ESTIMATED BLOOD LOSS: Minimal. COMPLICATIONS: None. INDICATIONS FOR PROCEDURE: Ms. Boyd is a 53-year-old female with a history of lithotripsy, presenting for staged stent placement. She voiced understanding of the options, alternatives, risks, and benefits and would like to proceed. PROCEDURE IN DETAIL: After informed consent was obtained, the patient was taken to the operating suite, placed supine on the operating table, underwent general anesthesia by the Anesthesia Service. She was placed in the dorsal lithotomy position and sterilely prepped and draped in standard fashion for cystoscopy. A 21-Irish cystoscope was inserted per urethra. Normal urethra was noted. Panendoscopy of the bladder revealed no tumors, no stones. There was seen. Bilateral retrograde pyelogram was performed. The right was normal. Left revealed a very dense 6 mm proximal ureteral obstruction. The 4 mm mid ureteral calculus appears to have passed with moderate difficulty requiring an angle tipped Glidewire. The ureter was navigated. A 6 x 26 cm ureteral stent was deployed with a coil in the renal pelvis and a coil in the bladder. The bladder was drained. The patient was awakened from anesthesia and transported to recovery room in excellent condition. Supervision of fluoroscopy interpretation of retrograde pyelography: I was present for the entire procedure and supervised fluoroscopy. There was no radiologist present. Attention was turned to the left and right ureteral orifices, which were catheterized. Retrograde pyelogram on the right side, revealed delicate ureter, delicate pelvocaliceal systems. On the left side, revealed a 6 mm proximal ureteral stone, 1 cm lower pole stone, 6 x 6 mm upper pole stone on the left side. MD DANTE Brown/[place] /[id number]
[2018-12-09] MEDS ORDERED: PROPOFOL IV EMULSION 10 MG/ML 20 ML VIAL ONE (15:19)
[2018-12-09] MEDS ORDERED: DEXAMETHASONE SOD PHOS INJ 4 MG/ML VIAL ONE (15:19)
[2018-12-09] MEDS ORDERED: LIDOCAINE HCL 2% LOCAL INJ 5 ML SDV VIAL INJ ONE (15:19)
[2018-12-09] MEDS ORDERED: ONDANSETRON HCL INJ 2MG/ML 2ML 2 MG/ML VIAL ONE (15:19)
[2018-12-09] MEDS ORDERED: SEVOFLURANE INHAL SOLN 250 ML PEN BTL ONE (15:19)
[2018-12-09] MEDS ORDERED: MIDAZOLAM HCL 2 MG/2 ML VIAL ONE (15:19)
[2018-12-09 15:55] VITALS: BP 122/79
--- NOTE | 2018-12-09 17:22 | NUR ---
REMOVED PATIENTS IV. CATHETER TIP INTACT AND PRESSURE DRESSING APPLIED.
--- NOTE | 2018-12-09 17:49 | NUR ---
PATIENT DISCHARGED FROM FACILITY. PATIENT GATHERED ALL PERSONAL BELONGINGS, DISCHARGE INSTRUCTIONS, AND FOLLOW UP INFORMATION. LEFT UNIT IN WHEELCHAIR AND WENT HOME VIA PRIVATE AUTO. NO SIGNS OF DISTRESS WHEN LEAVING FACILITY.
[2018-12-09] MEDS ORDERED: SIMVASTATIN 20 MG TAB PO SCH (21:00)
--- NOTE | 2018-12-11 05:11 | Discharge Summary ---
ADMISSION DIAGNOSES: Pyelonephritis, ureterolithiasis, type 2 diabetes, and hyperlipidemia. DISCHARGE DIAGNOSES: Pyelonephritis, ureterolithiasis, type 2 diabetes, and hyperlipidemia, and status post left stent placement. HISTORY: The patient has a history of hyperlipidemia, kidney stones, type 2 diabetes. SURGICAL HISTORY: None. FAMILY HISTORY: Cancer and diabetes. HOSPITAL COURSE: A 53-year-old female with past medical history of type 2 diabetes and hyperlipidemia, admitted with left flank pain associated with fever. She had followed up with Dr. Chaves a week prior to admission for lithotripsy, but the pain did not go away. Chest x-ray showed no pneumonia or edema. CT of the abdomen and pelvis showed proximal left ureteral calculi with multiple moderate left hydroureteronephrosis and findings of left pyelonephritis. The patient had a urine culture, which was contaminated. Per the patient report, her primary care doctor told her that she had E coli outpatient, so the patient went to the OR and had a bilateral cysto with retrograde and left stent placement. She will discharge home with Tylenol No.3 p.r.n. and Omnicef for five more days. The patient understands discharge instructions and agrees to plan. She will follow up with primary care and Dr. Chaves in one to two weeks. Dictated by Lilliam Torres NP MD JOSE DAVID Lewis/[place]USTIN /[id number]
== END 2018-12-09 17:53 | disposition home or self-care (01) | DRG 661 ==
LOC: ER 09:09 → ERHOLD 18:12 → IMCU 21:06 → MED/SURG 21:22
PROVIDERS: ADMIT Internal Medicine; ATTEND Internal Medicine
PROC: BT141ZZ Fluoroscopy of Kidneys, Ureters and Bladder using Low Osmolar Contrast (ICD-10-PCS; 2018-12-09)
PROC: 0T778DZ Dilation of Left Ureter with Intraluminal Device, Via Natural or Artificial Opening Endoscopic (ICD-10-PCS; principal; 2018-12-09 06:30)
DX: N13.6 Pyonephrosis (principal); R31.29 Other microscopic hematuria; R32 Unspecified urinary incontinence; D72.829 Elevated white blood cell count, unspecified; Z87.442 Personal history of urinary calculi; E11.9 Type 2 diabetes mellitus without complications; E78.5 Hyperlipidemia, unspecified; Z83.3 Family history of diabetes mellitus; Z80.9 Family history of malignant neoplasm, unspecified; E66.9 Obesity, unspecified; Z68.29 Body mass index [BMI] 29.0-29.9, adult
CPT/HCPCS: 36415; 71045; 74018; 74177; 74420; 80048; 80053; 81001; 82150; 82550; 82553; 82948; 83690; 84484; 85025; 85610; 85730; 87086; 93005; 99284; C1758; C2617; J0692; J1100; J2001; J2250; J2270; J2405; J3010; J7030; Q9967

== ENCOUNTER → 2018-12-16 | Day surgery (SDC) | payer BC ==
[2018-12-15 15:35] LABS: ANION GAP 16.6 mmol/L (8-16); BLOOD UREA NITROGEN 15 mg/dL (7-26); BUN/CREATININE RATIO 16 (6-25); CALCIUM 10.8 mg/dL (8.4-10.2); CARBON DIOXIDE 25 mmol/L (22-29); CHLORIDE 102 mmol/L (98-107); CREATININE, SERUM 0.92 mg/dL (0.57-1.11); EST GLOMERULAR FILTRATION RATE > 60 ML/MIN (60-); GLUCOSE 94 mg/dL (74-118); POTASSIUM 4.6 mmol/L (3.5-5.1); SODIUM 139 mmol/L (136-145)
[~2018-12-16] MED LIST: CEFDINIR300 MG PO; DEXAMETHASONE SOD PHOS INJ 4 MG/ML VIAL ONE; FENTANYL CITRATE/PF 100MCG/2 ML INJ ONE; GENTAMICIN 80MG/NS 100 ML 100 ML IV ONE; IOPAMIDOL 610MG/1ML 300 MG/ML VIAL IV ONE; LIDOCAINE HCL 2% LOCAL INJ 5 ML SDV VIAL INJ ONE; MIDAZOLAM HCL 2 MG/2 ML VIAL ONE; ONDANSETRON HCL INJ 2MG/ML 2ML 2 MG/ML VIAL ONE; PRAVASTATIN SOD20 MG PO; PROPOFOL IV EMULSION 10 MG/ML 20 ML VIAL ONE; SEVOFLURANE INHAL SOLN 250 ML PEN BTL ONE; TYLENOL # 31 EA PO; XIGDUO PO
--- OUTSIDE RECORDS SUMMARY | 2018-12-16 11:01 | XMS REPORT | Clinical Summary ---
Author Author [employer] Organization [employer] Address Unknown Phone Unavailable Care Team Providers Care Steam Boiler Fireman Name Role Phone Zi Matt MD PCP [...] MD 12/02/2018 Hospital General Surgery Encounter after 12/15/2017 Social History Date Tobacco Use Types Packs/Day [...] (ESWL) 4:20 PM CDT Special Needs NEXTMED MS AN ELECTIVE Routine 12/02/2018 SUPRAGLOTTIC AIRWAY 3:44 [...] PANEL Routine 12/02/2018 2:13 PM CDT after 12/15/2017 Results * POC glucose (12/02/2018 4:56 PM CDT) POC glucose 87 65 - 99 mg/dL SUTTER Comment: NONDENOMINATIONAL ALY Meter ID: [id number] [facility] Metal Window Screen Assembler: Frederic Barraza Specimen Performing Organization Address City/State/Zipcode [place] [address] [place] [address] PATHOLOGY AND [place] [address] [place] [address] [facility] * ECG Pre/Post Op (12/02/2018 2:51 PM CDT) Ventricular 61 [facility] MUSE rate Atrial rate 61 [facility] MUSE MS interval 148 [facility] MUSE QRSD interval 86 [facility] MUSE QT interval 380 [facility] MUSE QTC interval 382 [facility] MUSE P axis 1 40 [facility] MUSE QRS axis 1 1 [facility] MUSE T wave axis 21 [facility] MUSE EKG impression Normal sinus rhythm with sinus [facility] MUSE arrhythmia-Normal ECG-No previous ECGs available- Specimen Narrative Performed At Performing Organization Address [facility] Phone Number [facility] MUSE [address] [place] [address] * XR Abdomen 1 Vw (12/02/2018 2:32 PM CDT) Specimen Narrative Performed At EXAMINATION:XR ABDOMEN 1 VW [facility] CLINICAL HISTORY:pre op COMPARISON:None. IMPRESSION: 1.8 x 0.4 cm stone projects over the lower pole left kidney. Smaller 1 mm stone in the left kidney Large amount retained stool in colon Bony structures within normal limits [id number] Procedure Note Hm Interface, Radiology Results Incoming - 12/02/2018 3:18 PM CDT EXAMINATION: XR ABDOMEN 1 VW CLINICAL HISTORY: pre op COMPARISON: None. IMPRESSION: 1.8 x 0.4 cm stone projects over the lower pole left kidney. Smaller 1 mm stone in the left kidney Large amount retained stool in colon Bony structures within normal limits [id number] Performing Organization Address City/[facility]/Zipcode Phone Number [facility] [address] [place] [address] * hCG qualitative, urine screen (12/02/2018 2:19 PM CDT) [facility] hCG Negative Negative SUTTER qualitative, Comment: [facility] urine The manufacturers stated [facility] sensitivity of HcG test for serum is >/=10 mIU/ml and urine is >/=20mIU/ml. Specimen Urine Performing Organization Address [facility] Cent[facility]ode Phone Number [facility] [place]PARTMENT [place] [id number] [place] [address] [place] [address] PATHOLOGY AND [facility] MEDICINE [address] * Estimated GFR (12/02/2018 2:13 PM CDT) [facility] Estimated GFR >=90 mL/min/1.73 m2 SUTTER Comment: [facility] rpretation G1 >=90 Normal or high G2 60-89Mildly decreased L1k74-91 Mildly to moderately decreased [id number] Moderately to severely decreased G4 15-29Severely decreased G5 <15Kidney failure The eGFR was calculated using the Chronic Kidney Disease Epidemiology Collaboration (CKD-EPI) equation. Interpretation is based on recommendations of the National Kidney Foundation-Kidney Disease Outcomes Quality Initiative (NKF-KDOQI) published in 2014. Specimen Plasma specimen Performing Organization Address [facility] Centercode Phone Number [address] [place] [address] PATHOLOGY AND [facility] MEDICINE [address] * Basic metabolic panel (12/02/2018 2:13 PM CDT) [facility] Sodium 140 135 - 148 mEq/L [facility] Potassium 3.8 3.5 - 5.0 mEq/L [facility] Chloride 106 98 - 112 mEq/L [facility] CO2 25 24 - 31 mEq/L [facility] Anion gap 9@ANIO 7 - 15 mEq/L [facility] BUN 16 6 - 20 mg/dL [facility] Creatinine 0.70 0.50 - 0.90 mg/dL [facility] Glucose 101 (H) 65 - 99 mg/dL [facility] Calcium 10.3 (H) 8.3 - 10.2 mg/dL [facility] Specimen Plasma specimen Performing Organization Address City/State/Zipcode [place] Number [place] [address] [place] [address] PATHOLOGY AND GENOMIC MEDICINE GRIFFIN YARBROUGH [address] [place] [address] [facility] after 12/15/2017 Insurance Type Payer Benefit Subscriber ID Effective Phone Address Plan / Dates Group PPO BCBS ANTHEM xxxxxxxxxxxx 2015-P BLUE CROSS resent Advance Directives Patient has advance care planning documents on file. For more information, wilner mendoza contact: Griffin Yarbrough [address] [place] [address]
[2018-12-16 14:35] VITALS: BP 107/72
--- NOTE | 2018-12-17 14:29 | Operative Report ---
DATE OF PROCEDURE: 12/16/2018 SURGEON: Wei Chaves MD PREOPERATIVE DIAGNOSES: 1. Indwelling left ureteral stent. 2. Left ureteral calculi. 3. Left renal calculi. 4. Left-sided hydronephrosis. 5. Left ureteral stricture. POSTOPERATIVE DIAGNOSES: 1. Indwelling left ureteral stent. 2. Left ureteral calculi. 3. Left renal calculi. 4. Left-sided hydronephrosis. 5. Left ureteral stricture. PROCEDURES: 1. Cystourethroscopy with complicated left removal stent in a staged fashion (entirely separate procedure for removal of left renal stent staged after lithotripsy). 2. Left-sided ureteroscopy and laser lithotripsy (entirely separate staged procedure for ureteral calculus). 3. Staged left-sided ureteroscopy, stone extraction (entirely separate procedure for kidney stone). 4. Laser lithotripsy, staged removal of lower pole stones. 5. Cystourethroscopy with insertion of left renal stent in a staged fashion (entirely separate procedure for left ureteral stricture). 6. Supervision of fluoroscopy for both ureteroscopic and stent removal portions. 7. Interpretation of retrograde pyelography. ANESTHESIA: General. ESTIMATED BLOOD LOSS: Minimal. COMPLICATION: None. INDICATIONS: Ms. Boyd is a very pleasant 53-year-old female with a history of large left renal calculi, now presenting for removal of left stent and stones. She voiced understanding of the options, alternatives, the risks, and the benefits and she elected to proceed. PROCEDURE IN DETAIL: After informed consent was obtained, the patient was taken to the operative suite, placed supine on the operating table. She underwent general anesthesia by Anesthesia Service. She was placed in the dorsal lithotomy position, sterilely prepped and draped in standard fashion for cystoscopy. A 21-Hungarian cystoscope was inserted per urethra. Normal urethra was noted. Panendoscopy of the bladder revealed . A guidewire was inserted alongside the stent was removed. The ureteroscope was advanced to the level of fending ureteral stone. Utilizing a 365 micron laser fiber, the stone was obliterated, it was dense stricture formation here. The 2nd safety wire was introduced under direct vision and a flexible ureteroscope was advanced to lower pole stones, so stones were basket extracted. All stones were small 1 to 2 mm. Attempts made to flush them from lower pole best as possible. At the cessation of this, a 7 x 26 ureteral stent was deployed with a coil in the renal pelvis and a coil in the bladder. The string was left outside the meatus. The patient is awakened from anesthesia and transported to recovery room in excellent condition with no untoward effects noted. Supervision of fluoroscopy and interpretation of retrograde pyelography: I was present for the entire procedure and supervised fluoroscopy. There was no radiologist present. Attention was turned to the left ureter, which was catheterized with ureteroscope and retrograde pyelogram was performed with ureteroscope revealing the stent in adequate position in the collecting system. MD DANTE Brown/MODL /[id number]
== END | disposition home or self-care (01) ==
LOC: OR 10:55
PROVIDERS: ATTEND Urology
DX: N20.1 Calculus of ureter (principal); N20.0 Calculus of kidney; N13.30 Unspecified hydronephrosis; N13.5 Crossing vessel and stricture of ureter without hydronephrosis; Z46.6 Encounter for fitting and adjustment of urinary device; N39.0 Urinary tract infection, site not specified; R81 Glycosuria; E11.9 Type 2 diabetes mellitus without complications; K76.0 Fatty (change of) liver, not elsewhere classified; Z01.812 Encounter for preprocedural laboratory examination; Z79.84 Long term (current) use of oral hypoglycemic drugs; Z68.30 Body mass index [BMI] 30.0-30.9, adult; Z84.1 Family history of disorders of kidney and ureter
CPT/HCPCS: 36415 ×2; 52356; 74420; 80048; 82948; 88300; C1758; C2617; J1100; J1580; J2001; J2250; J2405; J2704; J3010; Q9967

== ENCOUNTER → 2019-11-01 | Outpatient (CLI) | payer BC ==
[~2019-11-01] MED LIST changes: -DEXAMETHASONE SOD PHOS INJ 4 MG/ML VIAL ONE; -FENTANYL CITRATE/PF 100MCG/2 ML INJ ONE; -GENTAMICIN 80MG/NS 100 ML 100 ML IV ONE; -IOPAMIDOL 610MG/1ML 300 MG/ML VIAL IV ONE; -LIDOCAINE HCL 2% LOCAL INJ 5 ML SDV VIAL INJ ONE; -MIDAZOLAM HCL 2 MG/2 ML VIAL ONE; -ONDANSETRON HCL INJ 2MG/ML 2ML 2 MG/ML VIAL ONE; -PROPOFOL IV EMULSION 10 MG/ML 20 ML VIAL ONE; -SEVOFLURANE INHAL SOLN 250 ML PEN BTL ONE
--- NOTE | 2019-11-01 15:27 | Diagnostic Imaging Report ---
EXAM: ABDOMEN-1VIEW (KUB) DATE: 11/01/2019 3:05 PM INDICATION: Calculus of kidney COMPARISON: 12/08/2018 FINDINGS: Bowel gas pattern appears nonobstructive. Bowel gas partially obscures the renal shadows limiting evaluation. The previously visualized left renal calculi are no longer visualized. No radiographically evident renal or urinary calculi are appreciated on today's examination. Stable appearing phleboliths noted within the pelvis. No acute osseous abnormalities identified. IMPRESSION: Previously visualized left renal and ureteral calculi are not visualized on today's examination. No radiographically evident urinary calculi appreciated. Signed by: Dr. Jaspal Arita MD on 11/01/2019 3:24 PM
== END ==
LOC: RAD 14:33
PROVIDERS: ATTEND Urology
DX: N20.0 Calculus of kidney (principal)
CPT/HCPCS: 74018